=== PATIENT | female | born 1985 | race African-American/Black ===

== ENCOUNTER 2018-11-30 16:21 | Emergency (ER) | payer MEDICARE, MEDICAID ==
[~2018-11-30] VITALS: Ht 172.7 cm; Wt 98.0 kg
[2018-11-30 17:09] VITALS: BP 124/98
== END 2018-11-30 20:46 | disposition left against medical advice (07) ==
LOC: ER 16:21
DX: Z53.21 Procedure and treatment not carried out due to patient leaving prior to being seen by health care provider (principal)

== ENCOUNTER 2019-02-09 22:41 | Emergency (ER) | payer MEDICARE, MEDICAID ==
[~2019-02-09] VITALS: Ht 175.3 cm; Wt 82.0 kg
[2019-02-09] MEDS ORDERED: IBUPROFEN 600MG TABLET PO STA (23:23)
[2019-02-10 00:10] LABS: CLARITY URINE CLEAR (CLEAR); COLOR URINE YELLOW (YELLOW); KETONES URINE NEGATIVE (NEGATIVE); LEUKOCYTE ESTERASE URINE NEGATIVE (NEGATIVE); NITRITE URINE NEGATIVE (NEGATIVE); OCCULT BLOOD URINE NEGATIVE (NEGATIVE); PH URINE 6.5 (4.5-8.0); PROTEIN URINE NEGATIVE (NEGATIVE); SPECIFIC GRAVITY URINE 1.024 (1.005-1.030)
[2019-02-10 00:12] LABS: BASOPHILS % 0.6 % (0.0-2.0); EOSINOPHILS % 0.7 % (0.0-5.0); HEMATOCRIT. 35.7 % (36.0-48.0); LYMPHOCYTES % 30.1 % (20.0-50.0); MEAN CORPUSCULAR HEMOGLOBIN 28.8 pg (28.0-32.0); MEAN CORPUSCULAR VOLUME 85.3 fL (81.0-99.0); MEAN PLATELET VOLUME 8.5 fl (7.4-10.4); MONOCYTES % 8.3 % (2.0-8.0); NEUTROPHILS % 60.3 % (40.0-76.0); PLATELET 260 x1000/uL (130-400); RED BLOOD CELL COUNT 4.19 mill/uL (4.2-5.4); RED CELL DISTRIBUTION WIDTH 16.9 % (11.6-14.6)
[2019-02-10 00:14] LABS: CHLORIDE 105 mEq/L (98-107)
[2019-02-10 00:18] LABS: ETHANOL BLOOD < 10 mg/dL
[2019-02-10 00:27] LABS: *COCAINE SCREEN URINE NEGATIVE (NEGATIVE); METHADONE URINE SCREEN NEGATIVE (NEGATIVE); OPIATES URINE SCREEN NEGATIVE (NEGATIVE); PHENCYCLIDINE URINE SCREEN NEGATIVE (NEGATIVE)
[2019-02-10 00:28] LABS: *AMPHETAMINES SCREEN URINE NEGATIVE (NEGATIVE); *BARBITURATES SCREEN URINE NEGATIVE (NEGATIVE); *BENZODIAZEPINES SCREEN URINE NEGATIVE (NEGATIVE); CANNABINOID URINE SCREEN NEGATIVE (NEGATIVE)
[2019-02-10 11:30] VITALS: BP 130/87
[2019-02-12] MEDS ORDERED: AMMONIA INHALATION 1EA INH ONE (10:01)
== END 2019-02-12 10:15 | disposition left against medical advice (07) ==
LOC: ER 22:41
DX: Z59.0 Homelessness (principal); E11.9 Type 2 diabetes mellitus without complications; F17.200 Nicotine dependence, unspecified, uncomplicated; Z88.3 Allergy status to other anti-infective agents
CPT/HCPCS: 36415; 80305; 80307; 80320; 80329; 81003; 99283; G0480

== ENCOUNTER 2019-04-27 05:25 | Emergency (ER) | payer MEDICARE, MEDICAID ==
[~2019-04-27] VITALS: Ht 167.6 cm; Wt 100.0 kg
[2019-04-27] MEDS ORDERED: KETOROLAC 30MG/ML VIAL IV STA (06:11)
[2019-04-27 06:42] LABS: BASOPHILS % 0.6 % (0.0-2.0); EOSINOPHILS % 2.6 % (0.0-5.0); HEMATOCRIT. 38.3 % (36.0-48.0); HEMOGLOBIN. 12.8 g/dL (12.0-16.0); LYMPHOCYTES % 27.1 % (20.0-50.0); MEAN CORPUSCULAR HEMOGLOBIN 28.4 pg (28.0-32.0); MEAN CORPUSCULAR VOLUME 85.1 fL (81.0-99.0); MEAN PLATELET VOLUME 8.5 fl (7.4-10.4); MONOCYTES % 8.8 % (2.0-8.0); NEUTROPHILS % 60.9 % (40.0-76.0); PLATELET 234 x1000/uL (130-400); RED CELL DISTRIBUTION WIDTH 15.9 % (11.6-14.6)
[2019-04-27 06:48] LABS: CHLORIDE 108 mEq/L (98-107)
[2019-04-27] MEDS ORDERED: SODIUM CHLORIDE 0.9% 1,000 ML IV ONE (08:15)
[2019-04-27 08:48] LABS: CLARITY URINE CLOUDY (CLEAR); COLOR URINE YELLOW (YELLOW); KETONES URINE NEGATIVE (NEGATIVE); LEUKOCYTE ESTERASE URINE 1+ (NEGATIVE); NITRITE URINE NEGATIVE (NEGATIVE); OCCULT BLOOD URINE NEGATIVE (NEGATIVE); PH URINE 5.5 (4.5-8.0); PROTEIN URINE NEGATIVE (NEGATIVE)
[2019-04-27 08:52] LABS: UCG SCREEN NEGATIVE
[2019-04-27 09:33] VITALS: BP 138/89
[2019-04-27 09:35] LABS: *AMPHETAMINES SCREEN URINE NEGATIVE (NEGATIVE); *BARBITURATES SCREEN URINE NEGATIVE (NEGATIVE); *BENZODIAZEPINES SCREEN URINE NEGATIVE (NEGATIVE); *COCAINE SCREEN URINE NEGATIVE (NEGATIVE); METHADONE URINE SCREEN NEGATIVE (NEGATIVE); OPIATES URINE SCREEN NEGATIVE (NEGATIVE); PHENCYCLIDINE URINE SCREEN NEGATIVE (NEGATIVE)
[2019-04-27 09:43] LABS: CANNABINOID URINE SCREEN PRESUMTIVE POSITIVE (NEGATIVE)
== END 2019-04-27 09:36 | disposition home or self-care (01) ==
LOC: ER 05:25
DX: N39.0 Urinary tract infection, site not specified (principal); E86.0 Dehydration; E11.9 Type 2 diabetes mellitus without complications; F20.9 Schizophrenia, unspecified; F17.210 Nicotine dependence, cigarettes, uncomplicated; Z90.49 Acquired absence of other specified parts of digestive tract; Z88.0 Allergy status to penicillin
CPT/HCPCS: 36415; 80053; 80305; 81003; 81025; 85025; 87086; 96374; 99283; J1885; J7030

== ENCOUNTER 2020-09-19 11:57 | Emergency (ER) | payer MEDICARE, MEDICAID ==
[~2020-09-19] VITALS: Ht 175.3 cm; Wt 84.0 kg
[2020-09-19] MEDS ORDERED: IBUPROFEN 600MG TABLET PO ONE (12:30)
[2020-09-19] MEDS ORDERED: IBUP-2029 MT (12:38)
[2020-09-19 12:50] VITALS: BP 131/78
== END 2020-09-19 12:51 | disposition home or self-care (01) ==
LOC: ER 12:09
DX: M25.552 Pain in left hip (principal); M25.551 Pain in right hip; E11.9 Type 2 diabetes mellitus without complications; F20.9 Schizophrenia, unspecified; F32.9 Major depressive disorder, single episode, unspecified; Z88.0 Allergy status to penicillin; Z91.013 Allergy to seafood; Z90.49 Acquired absence of other specified parts of digestive tract
CPT/HCPCS: 81025; 99283

== ENCOUNTER 2020-12-01 16:44 | Emergency (ER) | payer MEDICARE, MEDICAID ==
[~2020-12-01] VITALS: Ht 172.7 cm; Wt 72.0 kg
[~2020-12-01 16:44] MED LIST: IBUP-2029 MT
[2020-12-01] MEDS ORDERED: SODIUM CHLORIDE 0.9% 1,000 ML IV ONE (19:15)
[2020-12-01 20:27] LABS: CHLORIDE 96 mEq/L (98-107)
[2020-12-01 20:36] LABS: BETA HYDROXYBUTYRATE 1.4 mMol/L (0.0-0.3); PHOSPHORUS 2.9 mg/dL (2.5-4.9)
[2020-12-01 20:38] LABS: HCG SCREEN NEGATIVE
[2020-12-01] MEDS ORDERED: INSULIN REGULAR (HUMULIN R) 300UNITS/3ML VIAL IV ONE (21:00)
[2020-12-01 23:19] LABS: CHLORIDE 100 mEq/L (98-107)
[2020-12-01 23:25] LABS: PHOSPHORUS 3.1 mg/dL (2.5-4.9)
[2020-12-02 00:22] LABS: CHLORIDE 103 mEq/L (98-107)
[2020-12-02 00:27] LABS: PHOSPHORUS 2.8 mg/dL (2.5-4.9)
[2020-12-02 00:57] VITALS: BP 106/69
== END 2020-12-02 01:01 | disposition home or self-care (01) ==
LOC: ER 16:53
DX: E11.65 Type 2 diabetes mellitus with hyperglycemia (principal); I10 Essential (primary) hypertension; F32.9 Major depressive disorder, single episode, unspecified; F20.9 Schizophrenia, unspecified; Z79.4 Long term (current) use of insulin; Z90.49 Acquired absence of other specified parts of digestive tract; Z88.6 Allergy status to analgesic agent; Z88.0 Allergy status to penicillin; Z91.013 Allergy to seafood
CPT/HCPCS: 36415; 80048; 82010; 82962; 83735; 84100; 84703; 96361; 96374; 99283; J1815; J7030

== ENCOUNTER 2021-08-19 12:57 | Emergency (ER) | payer BC, MEDICAID ==
[~2021-08-19] VITALS: Ht 177.8 cm; Wt 97.8 kg
[2021-08-19] MEDS ORDERED: METF-414 PO (13:25)
[2021-08-19] MEDS ORDERED: INSU100I28 SUBCUT (13:25)
[2021-08-19] MEDS ORDERED: DIVA500T51 PO (13:25)
[2021-08-19] MEDS ORDERED: GABA-533 PO (13:25)
[2021-08-19] MEDS ORDERED: INSU100I13 SUBCUT (13:25)
[2021-08-19] MEDS ORDERED: RISP4TAB72 PO (13:25)
[2021-08-19] MEDS ORDERED: BUSP10TA4 PO (13:25)
[2021-08-19 14:53] LABS: BASOPHILS % 0.6 % (0.0-2.0); HEMATOCRIT. 38.5 % (36.0-48.0); LYMPHOCYTES % 33.9 % (20.0-50.0); MEAN CORPUSCULAR HEMOGLOBIN 27.8 pg (28.0-32.0); MEAN CORPUSCULAR VOLUME 82.3 fL (81.0-99.0); MEAN PLATELET VOLUME 8.5 fl (7.4-10.4); MONOCYTES % 10.5 % (2.0-8.0); PLATELET 284 x1000/uL (130-400); RED BLOOD CELL COUNT 4.68 mill/uL (4.2-5.4); RED CELL DISTRIBUTION WIDTH 16.5 % (11.6-14.6)
[2021-08-19 15:02] LABS: CHLORIDE 104 mEq/L (98-107)
[2021-08-19] MEDS ORDERED: SODIUM CHLORIDE 0.9% 1,000 ML IV ONE (15:15)
[2021-08-19 15:28] LABS: CLARITY URINE CLOUDY (CLEAR); COLOR URINE YELLOW (YELLOW); KETONES URINE 1+ (NEGATIVE); LEUKOCYTE ESTERASE URINE 1+ (NEGATIVE); NITRITE URINE NEGATIVE (NEGATIVE); OCCULT BLOOD URINE NEGATIVE (NEGATIVE); PH URINE 5.5 (4.5-8.0); PROTEIN URINE NEGATIVE (NEGATIVE); SPECIFIC GRAVITY URINE 1.033 (1.005-1.030); UROBILINOGEN URINE 0.2 E.U./dL (0.2-1.0)
[2021-08-19 15:36] LABS: HCG SCREEN NEGATIVE
[2021-08-19 15:48] LABS: *BARBITURATES SCREEN URINE NEGATIVE (NEGATIVE); *BENZODIAZEPINES SCREEN URINE NEGATIVE (NEGATIVE); *COCAINE SCREEN URINE NEGATIVE (NEGATIVE); METHADONE URINE SCREEN NEGATIVE (NEGATIVE)
[2021-08-19 15:49] LABS: CANNABINOID URINE SCREEN NEGATIVE (NEGATIVE); OPIATES URINE SCREEN NEGATIVE (NEGATIVE); PHENCYCLIDINE URINE SCREEN NEGATIVE (NEGATIVE)
[2021-08-19 16:01] LABS: *AMPHETAMINES SCREEN URINE PRESUMTIVE POSITIVE (NEGATIVE)
[2021-08-19] MEDS ORDERED: NITR-87 MT (16:35)
[2021-08-19 16:50] VITALS: BP 108/66
== END 2021-08-19 17:55 | disposition home or self-care (01) ==
LOC: ER 13:51
DX: N39.0 Urinary tract infection, site not specified (principal); E86.0 Dehydration; F15.10 Other stimulant abuse, uncomplicated; E11.65 Type 2 diabetes mellitus with hyperglycemia; F20.9 Schizophrenia, unspecified; F17.210 Nicotine dependence, cigarettes, uncomplicated; F32.A Depression, unspecified; Z90.49 Acquired absence of other specified parts of digestive tract; Z88.0 Allergy status to penicillin; Z91.013 Allergy to seafood; Z79.4 Long term (current) use of insulin
CPT/HCPCS: 36415; 80053; 80305; 81003; 81025; 82962; 84484; 84703; 85025; 93005; 96360; 99284

== ENCOUNTER 2021-11-26 21:44 | Emergency (ER) | payer BC, MEDICAID, MEDICARE ==
[~2021-11-26] VITALS: Ht 170.2 cm; Wt 77.0 kg
[~2021-11-26 21:44] MED LIST changes: +BUSP10TA4 PO; +DIVA500T51 PO; +GABA-533 PO; +INSU100I13 SUBCUT; +INSU100I28 SUBCUT; +METF-414 PO; +NITR-87 MT; +RISP4TAB72 PO
[2021-11-26 21:57] VITALS: BP 150/90
== END 2021-11-26 22:01 | disposition home or self-care (01) ==
LOC: ER 21:44
DX: Z13.9 Encounter for screening, unspecified (principal); F41.9 Anxiety disorder, unspecified
CPT/HCPCS: 99283